=== PATIENT | female | born 1950 | race Caucasian/White ===

== ENCOUNTER → 2017-12-04 07:28 | Outpatient (CLI) | payer MEDICARE, SELFPAY ==
[2017-12-04 10:51] LABS: Vitamin D 25 Hydroxy (D3) 50.7 ng/mL (30.0-100.0)
[2017-12-04 13:59] LABS: Add Manual Diff / Slide Review NO; Eosinophils Percent Auto 2.9 % (2-4); Hematocrit 37.3 % (36-46); Hemoglobin 12.4 g/dL (12.0-16.0); Lymphocytes Percent Auto 30.1 % (25-40); Mean Corpuscular HGB Conc 33.4 % (30-36); Mean Corpuscular Hemoglobin 30.2 PG (26-34); Mean Corpuscular Volume 90.6 fL (80-100); Monocytes Percent Auto 6.4 % (3-14); Neutrophils Absolute Auto 3200 /uL (3000-5900); Neutrophils Percent Auto 59.6 % (50-75); Platelet Count 175 X10^3/uL (150-400); Red Blood Cell Count 4.12 X10^6/uL (4.0-5.2); Red Cell Distribution Width 14.7 % (11.6-14.8); White Blood Cell Count 5.4 X10^3/uL (4.5-11.0)
[2017-12-04 14:25] LABS: Alanine Aminotransferase 38 IU/L (9-52); Albumin Globulin Ratio 1.3 (1.0-2.8); Alkaline Phosphatase 38 U/L (38-126); Aspartate Aminotransferase 34 IU/L (14-36); Bilirubin Total 0.3 mg/dL (0.2-1.3); Blood Urea Nitrogen 17 mg/dL (7-17); Carbon Dioxide 29 mmol/L (22-32); Chloride 100 mmol/L (98-107); Cholesterol 232 mg/dL (140-199); Estimated Glomerular Filt Rate 55.5 mL/min (>60); Globulin 3.2 g/dL (1.7-4.1); Glucose 76 mg/dL (80-110); HDL Cholesterol 78 mg/dL (40-60); HEMOLYSIS < 15 (0-50); LDL Cholesterol Calculated 143 mg/dL (<100); Potassium 4.5 mmol/L (3.4-5.1); Sodium 136 mmol/L (137-145); Total Protein 7.2 g/dL (6.3-8.2); Triglycerides 53 mg/dL (35-150)
== END ==
PROVIDERS: PCP Internal Medicine; Visit Provider Internal Medicine
DX: M81.0 Age-related osteoporosis without current pathological fracture (principal); M19.90 Unspecified osteoarthritis, unspecified site; R00.2 Palpitations; Z82.49 Family history of ischemic heart disease and other diseases of the circulatory system; Z13.220 Encounter for screening for lipoid disorders; Z00.00 Encounter for general adult medical examination without abnormal findings
CPT/HCPCS: 36415; 80053; 80061; 82306; 84443; 85025

== ENCOUNTER → 2018-01-02 10:19 | Outpatient (CLI) | payer MEDICARE, SELFPAY ==
--- NOTE | 2018-01-02 | DI.MG.S_ITS ---
BILATERAL DIGITAL SCREENING MAMMOGRAM 3D/2D WITH CAD: 01/02/2018 CLINICAL: Routine screening. Family history of breast cancer. Comparison is made to exams dated: 01/01/2017 mammogram - [facility], 12/01/2015 mammogram, and 11/25/2014 mammogram - [facility]. The tissue of both breasts is heterogeneously dense. This may lower the sensitivity of mammography. Current study was also evaluated with a Computer Aided Detection (CAD) system. There is an unchanged calcified mass in the upper outer left breast, likely representing a calcified fibroadenoma or lymph node. No significant masses, calcifications, or other findings are seen in either breast. There has been no significant interval change. IMPRESSION: BENIGN There is no mammographic evidence of malignancy. A 1 year screening mammogram is recommended. This exam was interpreted at Station ID: [id number]. NOTE: For mammograms, a report in lay terms will be sent to the patient. Approximately 15% of breast malignancies will not be visualized mammographically. In the management of a palpable breast mass, a negative mammogram must not discourage biopsy of a clinically suspicious lesion. Electronically Signed By: Ken Nuñez M.D. ecl/:01/04/2018 01:59:38 letter sent: Normal Exam ACR BI-RADS Category 2: Benign Finding(s) 3342F
== END ==
PROVIDERS: PCP Internal Medicine; Visit Provider Obstetrics & Gynecology
DX: Z12.31 Encounter for screening mammogram for malignant neoplasm of breast (principal); Z80.3 Family history of malignant neoplasm of breast
CPT/HCPCS: 77063; 77067

== ENCOUNTER 2018-06-29 06:32 | Emergency (ER) | payer MEDICARE, SELFPAY ==
[2018-06-29 06:35] VITALS: BP 112/62; PULSE 68; RESP 18; TEMP 36.5; O2SAT 96; BMI 20.2
--- NOTE | 2018-06-29 07:02 | ED_ITS ---
HPI - Eye Problem General Chief complaint: Eye Problems Stated complaint: Thinks detached retina L eye Time Seen by Provider: 06/29/18 06:43 Source: patient Mode of arrival: ambulatory Limitations: no limitations History of Present Illness HPI Narrative: Patient is a 68-year-old female here for evaluation of floaters and flashes in her left eye. She states that last evening she was leaving a friend's house . she states that while she was driving home she noticed flashers in her left eye off into the peripheral vision. She had no other symptoms associated with symptoms. She states that it is occasional. She woke up this morning still seeing the floaters. Again she states they are occasional. She sees the most when she looks to the left. no prior eye surgeries. She does wear corrective lenses. She states she has the beginnings of cataracts but has not had any treatment for them. No history of glaucoma. Related Data Home Medications Medication Instructions Recorded Confirmed calcium carbonate-vitamin D3 0 PO SEE INSTRUCTIONS #0 12/06/16 12/11/17 [Calcium 600 with Vitamin D3] conjugated estrogens [Premarin] 0 VAGINAL SEE INSTRUCTIONS #0 12/06/16 12/11/17 ibuprofen 200 mg PO BID PRN #0 12/06/16 12/11/17 Previous Rx's Medication Instructions Recorded progesterone micronized 100 mg PO SEE INSTRUCTIONS #45 cap 12/06/16 estradiol 0.05 mg/24 hr semiweekly 1 patch TRANSDERMAL 2XW #24 patch 12/11/17 transdermal patch estriol 1mg vaginal perle See Rx Instructions .ROUTE 12/11/17 .COMPLEX #30 each ibandronate 150 mg tablet 150 mg PO QMONTH #3 tab 12/11/17 progesterone micronized 100 mg 100 mg PO HS #90 cap 12/11/17 capsule trazodone 100 mg tablet 100 mg PO HS #90 tab 12/11/17 Allergies Allergy/AdvReac Type Severity Reaction Status Date / Time Sulfa (Sulfonamide Allergy Severe LIP Unverified 12/11/17 13:43 Antibiotics) SWELLING [SULFA (SULFONAMIDE ANTIBIOTICS)] Review of Systems Constitutional Denies fever(s) and Denies headache(s) Eyes Denies blind spots, Denies blurry vision, Reports change in vision ( flashers left eye), Denies diplopia, Denies eye discharge, Reports dry eyes, Reports floaters ( Left eye), Denies loss of peripheral vision, Denies loss of vision, Denies eye pain, Reports requires corrective lenses, Reports seeing flashes and Denies photophobia ENT Ears, Nose, Mouth, and Throat: Denies facial pain, Denies headache(s), Denies mouth lesions, Denies sinus pressure and Denies sore throat Cardiovascular Denies chest pain and Denies palpitations Integumentary/Breasts Denies rash Neurologic Denies headache(s) and Denies loss of vision Endocrine Denies palpitations PFSH Medical History Anxiety (Chronic) Hearing deficit (Chronic) History of diverticulosis (Chronic) Myopia (Chronic) Osteoarthritis (Chronic ~2011) Osteoporosis (Chronic ~2013) PAC (premature atrial contraction) (Chronic) PVC (premature ventricular contraction) (Chronic) Surgical History Anesthesia (Resolved) Surgical procedure planned (Resolved ~1995) Surgical procedure planned (Resolved ~2013) Family History Brother Age: 68 Glioblastoma Hypertension Diabetes mellitus Father Hypertension High cholesterol Mental health problem Diabetes mellitus Mother Breast cancer Social History Smoking Status: Former smoker Family History Brother Age: 68 Glioblastoma Hypertension Diabetes mellitus Father Hypertension High cholesterol Mental health problem Diabetes mellitus Mother Breast cancer Social History Smoking Status: Former smoker Exam Initial Vital Signs Initial Vital Signs: Vital Signs Temperature 97.7 F 06/29/18 06:35 Pulse Rate 68 06/29/18 06:35 Respiratory Rate 18 06/29/18 06:35 Blood Pressure 112/62 06/29/18 06:35 Pulse Oximetry 96 06/29/18 06:35 Const General: cooperative, healthy appearing, comfortable, well developed, well groomed and No acute distress Orientation: alert, awake and oriented x3 HENGA Head: normal to inspection and normocephalic Ears: TM's normal bilaterally Eyes Eyelids: eyelids normal Conjunctivae: conjunctivae normal Sclera: sclerae normal Pupils: PERRL EOM: EOM intact bilaterally Direct ophthalmoscopy: normal light reflex Other: patient's left eye does have a dark spot in the 6 o'clock position. Patient states this is not new. Interocular pressure left eye 18. Interocular pressure right eye 20. Nondilated direct ophthalmoscope shows normal optic nerve. Resp Effort & Inspection: normal respiratory effort Skin Lesions: no lesions Rashes: no rashes Neuro General: alert, awake and oriented x3 Cranial Nerves: CN's II-XI intact bilaterally Cognition: normal cognition Speech: speech normal Motor: muscle tone normal throughout Sensory Exam: no sensory deficits noted Course Vital Signs - 8 hr 06/29/18 06:35 Temperature 97.7 F Pulse Rate 68 Respiratory Rate 18 Blood Pressure 112/62 Pulse Oximetry 96 MDM - Eye Problem MDM Narrative Medical decision making narrative: Patient has no decrease in vision in left eye. Visu acuity was noted. Her history physical exam consistent with a vitreous detachment. Low suspicion for retinal detachment. 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 She was given return precautions. She expressed understanding and agreement plan. Discharge Plan Departure Patient Disposition: Home Clinical Impression: Vision abnormalities Instructions: DI for Vitreous Detachment Activity Restrictions/Additional Instructions: contact Dr. Cleary office on Sunday morning for follow-up. Return to the emergency department for any new symptoms to include headaches, loss of vision, numbness or tingling or weakness or any other concerning symptoms. Prescriptions: No Action ibuprofen 200 MG capsule 200 mg PO BID PRNQty: 0 RF: 0 conjugated estrogens [Premarin] 0.625 MG/GM cream Vaginal SEE INSTRUCTIONS Qty: 0 RF: 0 calcium carbonate-vitamin D3 [Calcium 600 with Vitamin D3] 600 MG/200 IU capsule PO SEE INSTRUCTIONS Qty: 0 RF: 0 progesterone micronized 100 MG capsule 100 mg PO SEE INSTRUCTIONS Qty: 45 RF: 3 estriol 1mg vaginal perle tablet See Rx Instructions .ROUTE .COMPLEX Qty: 30 RF: 5 ibandronate 150 mg tablet 150 mg PO QMONTH Qty: 3 RF: 3 progesterone micronized [Prometrium] 100 mg capsule 100 mg PO HS Qty: 90 RF: 3 trazodone 100 mg tablet 100 mg PO HS Qty: 90 RF: 3 estradiol 0.05 mg/24 hr patch semiweekly 1 patch Transdermal 2XW Qty: 24 RF: 3 Referrals: Miranda Barkley ARNP [Primary Care Provider] -
[2018-06-29 07:23] VITALS: BP 111/71; PULSE 64; RESP 14; O2SAT 99
== END 2018-06-29 07:25 | disposition home or self-care (01) ==
PROVIDERS: Emergency Provider Emergency Medicine; PCP Internal Medicine
DX: H53.9 Unspecified visual disturbance (principal)
CPT/HCPCS: 99282

== ENCOUNTER → 2019-01-03 10:03 | Outpatient (CLI) | payer MEDICARE, SELFPAY ==
--- NOTE | 2019-01-03 | DI.MG.S_ITS ---
BILATERAL DIGITAL SCREENING MAMMOGRAM 3D/2D WITH CAD: 01/03/2019 CLINICAL: Routine screening. Family history of breast cancer. Comparison is made to exams dated: 01/02/2018 mammogram, 01/01/2017 mammogram - [facility], and 12/01/2015 mammogram - [facility]. The tissue of both breasts is heterogeneously dense. This may lower the sensitivity of mammography. Current study was also evaluated with a Computer Aided Detection (CAD) system. There is a benign mass in the left breast. No significant masses, calcifications, or other findings are seen in either breast. There has been no significant interval change. IMPRESSION: There is no mammographic evidence of malignancy. A 1 year screening mammogram is recommended. This exam was interpreted at Station ID: [id number]. NOTE: For mammograms, a report in lay terms will be sent to the patient. Approximately 15% of breast malignancies will not be visualized mammographically. In the management of a palpable breast mass, a negative mammogram must not discourage biopsy of a clinically suspicious lesion. Electronically Signed By: Anna jessica/adina:01/03/2019 14:04:19 letter sent: Normal Exam ACR BI-RADS Category 2: Benign Finding(s) 3342F
== END ==
PROVIDERS: PCP Internal Medicine; Visit Provider Internal Medicine
DX: Z12.31 Encounter for screening mammogram for malignant neoplasm of breast (principal); Z80.3 Family history of malignant neoplasm of breast; M85.852 Other specified disorders of bone density and structure, left thigh; Z78.0 Asymptomatic menopausal state; Z82.62 Family history of osteoporosis; Z87.891 Personal history of nicotine dependence
CPT/HCPCS: 77063; 77067; 77080

== ENCOUNTER 2019-05-22 07:15 | Day surgery (SDC) | payer MEDICARE, SELFPAY ==
[2019-05-22] MEDS: CATARACT EYE COMPOUND (10 DROPS/SYRINGE) 3 DROPS EYE-OP (08:04)
[2019-05-22] MEDS: PROPARACAINE 0.5% OPHTH SOL 2 DROPS EYE-OP (08:04)
[2019-05-22 08:06] VITALS: BP 96/62; PULSE 58; RESP 16; TEMP 36.8; O2SAT 100; BMI 19.0
--- NOTE | 2019-05-22 08:35 | PM.PREOP ---
Pre-operative Note Interval Note History & Physical reviewed/Exam performed by Physician: Yes Changes to H&P: No
[2019-05-22] MEDS: PHENYLEPHRINE/LIDOCAINE VIAL (OR) 0.2 ML EYE-OP (08:55)
[2019-05-22] MEDS: BALANCED SALT IRRIG SOLN NO.2 15 ML 5 ML IRR (08:56)
[2019-05-22] MEDS: TETRACAINE 0.5% OPHTH DROPS 4 ML 2 DROPS EYE-OP (08:56)
[2019-05-22] MEDS: CHONDROIDTIN/SOD HYALURONATE 1.05 ML SYRINGE INTRAOCULA (08:56)
[2019-05-22] MEDS: MOXIFLOXACIN INJ 5 MG/ML VIAL EYE-OP (08:56)
[2019-05-22] MEDS: BALANCED SALT IRRIG SOLN NO.2 500 ML, EPINEPHrine 1 MG IRR (08:57)
[2019-05-22] MEDS: LIDOCAINE 2% INJ SDV 2 ML INJ (08:57)
--- NOTE | 2019-05-22 09:14 | PM.OP.1 ---
Procedure & Clinicians Procedure: Cataract extraction with intraocular lens implant, right. Same procedure as scheduled: Yes Indications: Visually significant age related nuclear sclerosis Surgeon: Gui Tracy Click Yes if Unassisted: Yes Anesthesia Type: MAC +/- Operative Notes Procedure in detail: The patient was brought to the operating suite. The correct patient, surgical site and lens were confirmed. 0.5 % tetracaine drops were placed in the right eye. The patient was prepped and draped in the typical sterile manner. A lid speculum was placed in the eye. 2% lidocaine was placed on the eye. A paracentesis port was created with a side-port blade. 0.1 mL of 1% preservative free lidocaine with phenylephrine was injected into the anterior chamber. Viscoelastic was injected into the anterior chamber. A 2.6mm keratome was used to create a clear corneal temporal incision. Cystotome and Utrata forceps were used to create a continuous curvilinear capsulorrhexis. Balanced salt solution was used to hydrodissect the nucleus. Phacoemulsification was used to remove the lens. The capsular bag was inflated with viscoelastic. A Anaya ZCBOO +16.5D lens was inserted into the capsule. Viscoelastic was removed and the wound hydrated. The wound was found to be leak free and the eye was assessed to be at normal physiologic pressure. 0.1mL Vigamox was injected into the anterior chamber. The lid speculum was removed and the patient left the operating room in excellent condition. Complications: none Post-operative Condition: stable Disposition: same day surgery
[2019-05-22 09:16] VITALS: BP 98/67; PULSE 63; RESP 16; TEMP 36.4; O2SAT 100
== END 2019-05-22 09:30 | disposition home or self-care (01) ==
LOC: OR 07:20
PROVIDERS: PCP Internal Medicine; Visit Provider Ophthalmology
PROC: (CPT 66984; principal; 2019-05-22 08:30)
DX: H25.11 Age-related nuclear cataract, right eye (principal); H40.013 Open angle with borderline findings, low risk, bilateral
CPT/HCPCS: 66984; J0171; J2250

== ENCOUNTER 2019-06-05 07:22 | Day surgery (SDC) | payer MEDICARE, SELFPAY ==
[2019-06-05] MEDS: PROPARACAINE 0.5% OPHTH SOL 2 DROPS EYE-OP (08:13)
[2019-06-05 08:15] VITALS: BP 104/69; PULSE 55; RESP 16; TEMP 36.3; O2SAT 100
[2019-06-05] MEDS: CATARACT EYE COMPOUND (10 DROPS/SYRINGE) 3 DROPS EYE-OP (08:16)
[2019-06-05 08:17] VITALS: BMI 18.9
--- NOTE | 2019-06-05 08:30 | PM.PREOP ---
Pre-operative Note Interval Note History & Physical reviewed/Exam performed by Physician: Yes Changes to H&P: No
[2019-06-05] MEDS: TETRACAINE 0.5% OPHTH DROPS 4 ML 2 DROPS EYE-OP (09:33)
[2019-06-05] MEDS: CHONDROIDTIN/SOD HYALURONATE 1.05 ML SYRINGE INTRAOCULA (09:48)
[2019-06-05] MEDS: LIDOCAINE 2% INJ SDV 2 ML INJ (09:48)
[2019-06-05] MEDS: BALANCED SALT IRRIG SOLN NO.2 15 ML 5 ML IRR (09:48)
[2019-06-05] MEDS: PHENYLEPHRINE/LIDOCAINE VIAL (OR) 0.2 ML EYE-OP (09:49)
[2019-06-05] MEDS: MOXIFLOXACIN INJ 5 MG/ML VIAL EYE-OP (09:49)
[2019-06-05] MEDS: BALANCED SALT IRRIG SOLN NO.2 500 ML, EPINEPHrine 1 MG IRR (09:50)
--- NOTE | 2019-06-05 10:06 | PM.OP.1 ---
Procedure & Clinicians Procedure: Cataract extraction with intraocular lens implant, left. Same procedure as scheduled: Yes Indications: Visually significant age related nuclear sclerosis, left Surgeon: Gui Tracy Click Yes if Unassisted: Yes Anesthesia Type: MAC +/- Operative Notes Procedure in detail: The patient was brought to the operating suite. The correct patient, surgical site and lens were confirmed. 0.5 % tetracaine drops were placed in the left eye. The patient was prepped and draped in the typical sterile manner. A lid speculum was placed in the eye. 2% lidocaine was placed on the eye. A paracentesis port was created with a side-port blade. 0.1 mL of 1% preservative free lidocaine with phenylephrine was injected into the anterior chamber. Viscoelastic was injected into the anterior chamber. A 2.6mm keratome was used to create a clear corneal temporal incision. Cystotome and Utrata forceps were used to create a continuous curvilinear capsulorrhexis. Balanced salt solution was used to hydrodissect the nucleus. Phacoemulsification was used to remove the lens. The capsular bag was inflated with viscoelastic. A Anaya ZCBOO +16.5D lens was inserted into the capsule. Viscoelastic was removed and the wound hydrated. The wound was found to be leak free and the eye was assessed to be at normal physiologic pressure. 0.1mL Moxifloxacin (5mg/mL) preservative free was injected into the anterior chamber. The lid speculum was removed and the patient left the operating room in excellent condition. Complications: none Post-operative Condition: stable Disposition: same day surgery
[2019-06-05 10:13] VITALS: BP 101/74; PULSE 60; RESP 15; TEMP 36.4; O2SAT 99
== END 2019-06-05 10:28 | disposition home or self-care (01) ==
LOC: OR 07:28
PROVIDERS: PCP Internal Medicine; Referring Provider Ophthalmology; Visit Provider Ophthalmology
PROC: (CPT 66984; principal; 2019-06-05 09:00)
DX: H25.12 Age-related nuclear cataract, left eye (principal)
CPT/HCPCS: 66984; J0171; J2250

== ENCOUNTER → 2020-01-05 08:05 | Outpatient (CLI) | payer MEDICARE, SELFPAY ==
--- NOTE | 2020-01-05 08:23 | DI.MG.S_ITS ---
Patient Name: ANA KOLB date: 1950 Sex: F Attending Physician: Filippo Indications: Date: 01/05/2020 08:17 At the request of: NIKKI YAP Procedure: MM screening mammo BI BILATERAL DIGITAL SCREENING MAMMOGRAM 3D/2D WITH CAD: 01/05/2020 CLINICAL: Routine screening. Family history of breast cancer. Comparison is made to exams dated: 01/03/2019 mammogram, 01/02/2018 mammogram, and 01/01/2017 mammogram - [facility]. The tissue of both breasts is heterogeneously dense. This may lower the sensitivity of mammography. Current study was also evaluated with a Computer Aided Detection (CAD) system. There is a benign mass in the left breast. There also are benign calcifications in the left breast. No significant masses, calcifications, or other findings are seen in either breast. There has been no significant interval change. IMPRESSION: BENIGN There is no mammographic evidence of malignancy. A 1 year screening mammogram is recommended. This exam was interpreted at Station ID: [id number]. NOTE: For mammograms, a report in lay terms will be sent to the patient. Approximately 15% of breast malignancies will not be visualized mammographically. In the management of a palpable breast mass, a negative mammogram must not discourage biopsy of a clinically suspicious lesion. Electronically Signed By: Steve funez/adina:01/05/2020 09:09:11 letter sent: Normal Exam ACR BI-RADS Category 2: Benign Finding(s) 3342F
== END ==
PROVIDERS: PCP Internal Medicine; Referring Provider Internal Medicine; Visit Provider Internal Medicine
DX: Z12.31 Encounter for screening mammogram for malignant neoplasm of breast (principal); Z80.3 Family history of malignant neoplasm of breast
CPT/HCPCS: 77063; 77067

== ENCOUNTER → 2020-05-21 07:38 | Outpatient (CLI) | payer MEDICARE, SELFPAY ==
[2020-05-21] MEDS: COVID-19 VACC #1, MRNA(MOD) 100 MCG/0.5 ML VIAL IM (07:42)
== END ==
PROVIDERS: PCP Internal Medicine; Visit Provider Internal Medicine
DX: Z23 Encounter for immunization (principal)
CPT/HCPCS: 0011A; 91301

== ENCOUNTER → 2020-06-18 07:39 | Outpatient (CLI) | payer MEDICARE, SELFPAY ==
[2020-06-18] MEDS: COVID-19 VACC #2, MRNA(MOD) 100 MCG/0.5 ML VIAL IM (07:42)
== END ==
PROVIDERS: PCP Internal Medicine; Visit Provider Internal Medicine
DX: Z23 Encounter for immunization (principal)
CPT/HCPCS: 0012A; 91301

== ENCOUNTER → 2020-10-04 11:08 | Outpatient (CLI) | payer MEDICARE, SELFPAY ==
--- NOTE | 2020-10-04 | DI.US.S_ITS ---
PROCEDURE: US PELVIC COMPLETE INDICATIONS: ABNORMAL UTERINE AND VAGINAL BLEEDING TECHNIQUE: Real-time scanning was performed of the pelvic organs, with image documentation. Additional endovaginal scanning was necessary due to incomplete visualization of the adnexal and endometrial structures by transabdominal scanning. COMPARISON: None. FINDINGS: Uterus: The uterus measures 10.1 x 7.6 x 7.6 cm. Endometrial thickness is 2.2 mm. The uterus is heterogenous and enlarged. A medial and posterior intramural fibroid measures 6.9 x 6.9 x 6.1 cm. A left anterior intramural fibroid measures 0.9 x 1.2 x 0.7 cm. There is a nabothian cyst. Ovaries: The right ovary is not well seen. The left ovary has a normal size and appearance. Other: No adnexal fluid. IMPRESSION: 1. Fibroid uterus with the largest fibroid posteriorly measuring 6.9 x 6.9 x 6.1 cm. 2. No acute abnormality. Dictated by: Bossman Villanueva M.D. on 10/04/2020 at 15:27 Approved by: Bossman Villanueva M.D. on 10/04/2020 at 15:30
== END ==
PROVIDERS: PCP Internal Medicine; Referring Provider Internal Medicine; Visit Provider Internal Medicine
DX: N93.9 Abnormal uterine and vaginal bleeding, unspecified (principal); D25.1 Intramural leiomyoma of uterus; N88.8 Other specified noninflammatory disorders of cervix uteri
CPT/HCPCS: 76830; 76856

== ENCOUNTER → 2021-01-05 15:44 | Outpatient (CLI) | payer MEDICARE, SELFPAY ==
--- NOTE | 2021-01-05 | DI.MG.S_ITS ---
BILATERAL DIGITAL SCREENING MAMMOGRAM 3D/2D WITH CAD: 01/05/2021 CLINICAL: Routine screening. Family history of breast cancer. Comparison is made to exams dated: 01/05/2020 mammogram, 01/03/2019 mammogram, and 01/02/2018 mammogram - [facility]. The tissue of both breasts is heterogeneously dense. This may lower the sensitivity of mammography. Current study was also evaluated with a Computer Aided Detection (CAD) system. There is a benign mass in the left breast. There also are benign calcifications in the left breast. Additionally, there are benign post operative findings in the right breast. No significant masses, calcifications, or other findings are seen in either breast. There has been no significant interval change. IMPRESSION: BENIGN There is no mammographic evidence of malignancy. A 1 year screening mammogram is recommended. This exam was interpreted at Station ID: [id number]. NOTE: For mammograms, a report in lay terms will be sent to the patient. Approximately 15% of breast malignancies will not be visualized mammographically. In the management of a palpable breast mass, a negative mammogram must not discourage biopsy of a clinically suspicious lesion. Electronically Signed By: Bossman Villanueva acr/penrad:01/05/2021 18:39:28 letter sent: Normal Exam ACR BI-RADS Category 2: Benign Finding(s) 3342F
== END ==
PROVIDERS: PCP Internal Medicine; Referring Provider Internal Medicine; Visit Provider Internal Medicine
DX: Z12.31 Encounter for screening mammogram for malignant neoplasm of breast (principal); Z80.3 Family history of malignant neoplasm of breast
CPT/HCPCS: 77063; 77067

== ENCOUNTER → 2021-02-14 12:01 | Outpatient (CLI) | payer MEDICARE, SELFPAY | PROVIDERS: PCP Internal Medicine; Referring Provider Internal Medicine; Visit Provider Internal Medicine | DX: Z78.0 Asymptomatic menopausal state (principal); M85.852 Other specified disorders of bone density and structure, left thigh; Z87.891 Personal history of nicotine dependence | CPT/HCPCS: 77080 ==

== ENCOUNTER → 2022-01-31 10:01 | Outpatient (CLI) | payer MEDICARE, SELFPAY ==
--- NOTE | 2022-01-31 10:03 | DI.MG.S_ITS ---
BILATERAL DIGITAL SCREENING MAMMOGRAM 3D/2D WITH CAD: 01/31/2022 CLINICAL: Routine screening. Family history of breast cancer. Comparison is made to exams dated: 01/05/2021 mammogram, 01/05/2020 mammogram, 01/03/2019 mammogram - [facility], 06/27/2013 mammogram, and 11/25/2014 mammogram - [facility]. Both breasts are heterogeneously dense, which may obscure small masses (category c / 51-75% glandular tissue). Current study was also evaluated with a Computer Aided Detection (CAD) system. There is a benign mass in the left breast. There also are benign calcifications in the left breast. Additionally, there are benign post operative findings in the right breast. No significant masses, calcifications, or other findings are seen in either breast. There has been no significant interval change. IMPRESSION: BENIGN There is no mammographic evidence of malignancy. A 1 year screening mammogram is recommended. Based on Tyrer-Cuzick model (a risk assessment model), the patient's lifetime risk is 23.7% and her 10 year risk is 15.7%. If a patient has an elevated risk, a more comprehensive evaluation should be considered and/or a referral to a genetic counselor. The [place] [employer], [place] [employer], and NCCN Guidelines advise the consideration of Breast MRI as an adjunct to screening mammography in patients whose Lifetime risk to develop breast cancer is 20% or higher. This exam was interpreted at Station ID: [id number]. NOTE: For mammograms, a report in lay terms will be sent to the patient. Approximately 15% of breast malignancies will not be visualized mammographically. In the management of a palpable breast mass, a negative mammogram must not discourage biopsy of a clinically suspicious lesion. Electronically Signed By: Steve funez/adina:01/31/2022 11:30:37 letter sent: Normal Exam ACR BI-RADS Category 2: Benign Finding(s) 3342F
== END ==
PROVIDERS: PCP Internal Medicine; Referring Provider Internal Medicine; Visit Provider Internal Medicine
DX: Z12.31 Encounter for screening mammogram for malignant neoplasm of breast (principal); Z80.3 Family history of malignant neoplasm of breast
CPT/HCPCS: 77063; 77067

== ENCOUNTER → 2023-02-01 07:46 | Outpatient (CLI) | payer MEDICARE, SELFPAY ==
--- NOTE | 2023-02-01 | DI.MG.S_ITS ---
BILATERAL DIGITAL SCREENING MAMMOGRAM 3D/2D WITH CAD: 02/01/2023 CLINICAL: Routine screening. Family history of breast cancer. Comparison is made to exams dated: 01/31/2022 mammogram, 01/05/2021 mammogram, and 01/05/2020 mammogram - [facility]. Both breasts are heterogeneously dense, which may obscure small masses (category c / 51-75% glandular tissue). Current study was also evaluated with a Computer Aided Detection (CAD) system. There is a benign mass in the left breast. There also are benign calcifications in the left breast. Additionally, there are benign post operative findings in the right breast. No significant masses, calcifications, or other findings are seen in either breast. There has been no significant interval change. IMPRESSION: BENIGN There is no mammographic evidence of malignancy. A 1 year screening mammogram is recommended. Based on Tyrer-Cuzick model (a risk assessment model), the patient's lifetime risk is 22.0% and her 10 year risk is 15.5%. If a patient has an elevated risk, a more comprehensive evaluation should be considered and/or a referral to a genetic counselor. The [place] [employer], [employer], and NCCN Guidelines advise the consideration of Breast MRI as an adjunct to screening mammography in patients whose Lifetime risk to develop breast cancer is 20% or higher. This exam was interpreted at Station ID: [id number]. NOTE: For mammograms, a report in lay terms will be sent to the patient. Approximately 15% of breast malignancies will not be visualized mammographically. In the management of a palpable breast mass, a negative mammogram must not discourage biopsy of a clinically suspicious lesion. Electronically Signed By: Bossman ng/penrad:02/01/2023 11:58:44 letter sent: Normal Exam ACR BI-RADS Category 2: Benign Finding(s) 3342F
== END ==
PROVIDERS: PCP Internal Medicine; Referring Provider Internal Medicine; Visit Provider Internal Medicine
DX: Z12.31 Encounter for screening mammogram for malignant neoplasm of breast (principal); Z80.3 Family history of malignant neoplasm of breast
CPT/HCPCS: 77063; 77067

== ENCOUNTER → 2023-02-26 11:12 | Outpatient (CLI) | payer MEDICARE, SELFPAY ==
--- NOTE | 2023-02-26 | DI.RAD.S_ITS ---
Bone Density Report Name: ANA KOLB Age: 73 Sex: Female Ethnicity: White Date of : 1950 Indication: osteopenia; Referring Provider: NIKKI YAP Study: Bone densitometry was performed. Exam Date: February 26, 2023 Accession number: [id number] Bone Density: Region BMD T-score Z-score Classification AP Spine(L1-L4) 0.779 -2.4 -0.2 Osteopenia Femoral Neck (Left) 0.553 -2.7 -0.8 Osteoporosis Total Hip (Left) 0.625 -2.6 -1.0 Osteoporosis Femoral Neck (Right) 0.576 -2.5 -0.6 Osteoporosis Total Hip (Right) 0.620 -2.6 -1.0 Osteoporosis Total Hip Mean 0.623 -2.6 -1.0 Osteoporosis World Health Organization criteria for BMD impression classify patients as: Normal (T-score at or above -1.0), Osteopenia (T-score between -1.0 and -2.5), or Osteoporosis (T-score at or below -2.5). 10-year Fracture Risk: FRAX not reported because: Some T-score for Spine Total or Hip Total or Femoral Neck at or below -2.5 Previous Exams: -- Region Exam Age BMD T-score BMD Change BMD Change Date g/cm2 vs Baseline vs Previous -- AP Spine (L1-L4) 02/26/2023 73 0.779 -2.4 -0.138 (-15.0%)# -0.101 (-11.5%)# 02/14/2021 70 0.880 -1.5 -0.037 (-4.0%)* -0.026 (-2.9%)* 01/03/2019 68 0.907 -1.3 -0.010 (-1.1%) -0.010 (-1.1%) 01/01/2017 66 0.917 -1.2 Total Hip(Left) 02/26/2023 73 0.625 -2.6 -0.055 (-8.0%)# -0.076 (-10.9%)# 02/14/2021 70 0.701 -2.0 0.021 (3.2%) -0.007 (-1.0%) 01/03/2019 68 0.708 -1.9 0.028 (4.2%)* 0.028 (4.2%)* 01/01/2017 66 0.680 -2.1 Total Hip(Right) 02/26/2023 73 0.620 -2.6 -0.051 (-7.6%)# -0.067 (-9.8%)# 02/14/2021 70 0.687 -2.1 0.016 (2.4%) -0.021 (-3.0%) 01/03/2019 68 0.709 -1.9 0.037 (5.6%)* 0.037 (5.6%)* 01/01/2017 66 0.671 -2.2 -- *Denotes significance at 95% confidence level, LSC for AP Spine = 0.022 g/cm2, LSC for Total Hip = 0.027 g/cm2 # Denotes dissimilar scan types or analysis methods Impression: The patient has osteoporosis, based on the Left Femoral Neck T-score. No significant bone loss was observed. Discussion: INCREASED RISK OF FRACTURE. BONE DENSITY IS UNDESIRABLY LOW AT ONE OR MORE SKELETAL SITES, CONSISTENT WITH POSTMENOPAUSAL OSTEOPOROSIS. This patient's lowest T-score meets the World Health Organization's (WHO) criteria for osteoporosis at one or more sites (T-score -2.5 or below). In untreated patients, the risk of osteoporotic fracture increases approximately two-fold for each 1.0 SD decrease in T-score. Low bone density is not the only risk factor for fracture; also consider factors such as patient's age, frailty or poor health, risk of falling, risk of injury, previous osteoporotic fracture, family history of osteoporosis, cigarette smoking, low body weight, etc. Not everyone with low bone mineral density has osteoporosis; osteomalacia and other metabolic bone disorders should also be considered. Patients who have osteoporosis should be evaluated for specific diseases and conditions (secondary causes) that may cause or contribute to bone loss. The [place] Association [employer] Clinical Endocrinologists (AACE) and National Osteoporosis Foundation (NOF) recommend pharmacologic intervention for all postmenopausal women whose T-score is in this range. The patient should follow a healthful lifestyle (good nutrition with adequate calcium and vitamin D, and appropriate weight-bearing exercise). Follow-Up: Consider a repeat BMD and Vertebral Fracture Assessment (VFA) exam in 2 years or sooner if medically necessary, to reassess this patient's status. Reported by: DOUG KAUFFMAN M.D. on 02/26/2023 11:34:00 AM.
== END ==
PROVIDERS: PCP Internal Medicine; Referring Provider Internal Medicine; Visit Provider Internal Medicine
DX: Z78.0 Asymptomatic menopausal state (principal); M81.0 Age-related osteoporosis without current pathological fracture
CPT/HCPCS: 77080

== ENCOUNTER → 2024-02-07 07:41 | Outpatient (CLI) | payer MEDICARE, SELFPAY ==
--- NOTE | 2024-02-07 | DI.MG.S_ITS ---
BILATERAL DIGITAL SCREENING MAMMOGRAM 3D/2D WITH CAD: 02/07/2024 CLINICAL: Routine screening. Family history of breast cancer. Comparison is made to exams dated: 02/01/2023 mammogram, 01/31/2022 mammogram, and 01/05/2021 mammogram - [facility]. The breasts are heterogeneously dense, which may obscure small masses (category c / 51-75% glandular tissue). Current study was also evaluated with a Computer Aided Detection (CAD) system. There is a benign mass in the left breast. There also are benign calcifications in the left breast. Additionally, there are benign post operative findings in the right breast. No significant masses, calcifications, or other findings are seen in either breast. There has been no significant interval change. IMPRESSION: BENIGN There is no mammographic evidence of malignancy. A 1 year screening mammogram is recommended. Based on Tyrer-Cuzick model (a risk assessment model), the patient's lifetime risk is 20.9% and her 10 year risk is 15.9%. If a patient has an elevated risk, a more comprehensive evaluation should be considered and/or a referral to a genetic counselor. The [employer], [employer], and NCCN Guidelines advise the consideration of Breast MRI as an adjunct to screening mammography in patients whose Lifetime risk to develop breast cancer is 20% or higher. This exam was interpreted at Station ID: [id number]. NOTE: For mammograms, a report in lay terms will be sent to the patient. Approximately 15% of breast malignancies will not be visualized mammographically. In the management of a palpable breast mass, a negative mammogram must not discourage biopsy of a clinically suspicious lesion. Electronically Signed By: Steve funez/adina:02/08/2024 20:34:19 letter sent: Normal Exam ACR BI-RADS Category 2: Benign
== END ==
PROVIDERS: PCP Internal Medicine; Referring Provider Internal Medicine; Visit Provider Internal Medicine
DX: Z12.31 Encounter for screening mammogram for malignant neoplasm of breast (principal); Z80.3 Family history of malignant neoplasm of breast; R92.333 Mammographic heterogeneous density, bilateral breasts
CPT/HCPCS: 77063; 77067

== ENCOUNTER → 2024-07-29 11:47 | Outpatient (CLI) | payer MEDICARE, SELFPAY ==
--- NOTE | 2024-07-29 11:49 | DI.MRI.S_ITS ---
MR breast BI wo/w con: 07/29/2024. BI-RADS: 1 CLINICAL: 74-year old female for bilateral diagnostic breast MRI. High-Risk Screening MRI. Current reported family history of breast cancer: mother, sister and maternal aunt. PRIOR EXAMS 02/07/2024, 02/01/2023, 01/31/2022, 01/05/2021, 01/05/2020, 01/03/2019, 01/02/2018, 01/01/2017. MRI TECHNIQUE Bilateral breast MRI was performed on a 1.5 [place] magnet using a dedicated breast coil with mild compression. Axial T1 and T2 STIR sequences were obtained. Dynamic contrast enhanced VIBRANT fat-suppressed sequences were obtained. Delayed sagittal high resolution or sagittal reconstructed isotropic sequence was also obtained. Subtraction images and maximum intensity projection images were obtained. The study was evaluated using Shot Stats software. IV Contrast: 20 ml ProHance. FIBROGLANDULAR TISSUE Bilateral: C. Heterogeneous fibroglandular tissue. BACKGROUND PARENCHYMAL ENHANCEMENT Bilateral: Mild symmetrical background parenchymal enhancement. BREAST FINDINGS Bilateral: Benign-appearing duct ectasia noted. There is no suspicious mass or non-mass enhancement. There are no abnormal axillary or internal mammary lymph nodes. IMPRESSION: * No evidence of malignancy. RECOMMENDATIONS Bilateral * If the patient has an elevated lifetime risk for breast cancer of over 20%, recommend consideration for annual screening breast MRI as an adjunct to screening mammography. This is to be offset by approximately 6 months from patient's mammogram. * Annual screening mammography. COMMENTS: The imaging literature indicates that a negative contrast breast MRI examination has a high sensitivity and a moderate specificity for detecting and excluding invasive carcinomas to a detection threshold of 3-5 mm; nonetheless, appropriate clinical and mammographic follow-up are recommended. MRI is not sensitive for detecting DCIS (ductal carcinoma in situ) and may not detect large invasive neoplasms that show only minimal enhancement such as mucinous carcinoma. If there are suspicious calcifications or clinically worrisome palpable masses, then biopsy should still be considered. Invasive neoplasms can be hidden by co-existent and benign enhancement caused by mastitis, hormone therapy effects, radiation therapy, , and recent biopsy or surgery. False positive examinations can occur in a number of circumstances, including breasts that have recently been subject to invasive procedures and those that contain atypical ductal hyperplasia, hormonally stimulated glandular tissue, fat necrosis, or radial scars. OVERALL ASSESSMENT CATEGORY BI-RADS-1: Negative. ELECTRONICALLY SIGNED: Danisha Spencer M.D. on 07/29/2024 at 01:37:56 PM PT Interpreting Station ID: [id number]
== END ==
PROVIDERS: PCP Family Medicine; Referring Provider Family Medicine; Visit Provider Family Medicine
DX: Z80.3 Family history of malignant neoplasm of breast (principal); Z12.39 Encounter for other screening for malignant neoplasm of breast; N60.42 Mammary duct ectasia of left breast; N60.41 Mammary duct ectasia of right breast; R92.333 Mammographic heterogeneous density, bilateral breasts
CPT/HCPCS: 77049; A9579

== ENCOUNTER → 2025-02-13 07:55 | Outpatient (CLI) | payer MEDICARE, SELFPAY ==
--- NOTE | 2025-02-13 07:57 | DI.MG.S_ITS ---
MM screening mammo BI: 02/13/2025. BI-RADS: 1 CLINICAL: 74-year old female for bilateral screening mammogram. Tyrer-Cuzick lifetime risk of 10.2%. Current reported family history of breast cancer: mother, sister and maternal aunt. The patient had a prior right breast biopsy. PRIOR EXAMS 07/29/2024, 02/07/2024, 02/01/2023, 01/31/2022. MAMMOGRAPHY TECHNIQUE: 2D and 3D (tomosynthesis) digital mammographic views obtained, with additional images as needed for full coverage. Current study was also evaluated with a Computer Aided Detection (CAD) system. DENSITY C. The breasts are heterogeneously dense, which may obscure small masses. MAMMOGRAPHY FINDINGS Bilateral: No suspicious mass, asymmetry, microcalcification, or other abnormality seen. IMPRESSION: * No evidence of malignancy. RECOMMENDATIONS Bilateral * Annual screening mammography. OVERALL ASSESSMENT CATEGORY BI-RADS-1: Negative. The [employer] recommends annual screening mammography beginning at age 40 for women with average risk of breast cancer. ELECTRONICALLY SIGNED: Danisha Spencer M.D. on 02/13/2025 at 05:15:26 PM PT Interpreting Station ID: [id number]
== END ==
LOC: MAMMO 07:56
PROVIDERS: PCP Family Medicine; Referring Provider Family Medicine; Visit Provider Family Medicine
DX: Z12.31 Encounter for screening mammogram for malignant neoplasm of breast (principal); R92.333 Mammographic heterogeneous density, bilateral breasts; Z80.3 Family history of malignant neoplasm of breast
CPT/HCPCS: 77063; 77067

== ENCOUNTER → 2025-04-06 07:12 | Outpatient (CLI) | payer MEDICARE, SELFPAY ==
[2025-04-06 07:42] LABS: Hemoglobin A1C% w Est Avg Glu 5.1 % (4.0-6.0)
[2025-04-06 07:48] LABS: Alanine Aminotransferase 22 IU/L (<35); Albumin 3.9 g/dL (3.5-5.0); Albumin Globulin Ratio 1.3 (1.0-2.8); Alkaline Phosphatase 53 U/L (38-126); Blood Urea Nitrogen 20 mg/dL (7-17); Calcium 9.2 mg/dL (8.4-10.2); Carbon Dioxide 26 mmol/L (22-32); Chloride 104 mmol/L (98-107); Cholesterol 207 mg/dL (140-199); Estimated Glomerular Filt Rate > 60 mL/min (>60); Globulin 2.9 g/dL (1.7-4.1); Glucose 99 mg/dL (70-99); HDL Cholesterol 102 mg/dL (40-60); HEMOLYSIS < 15 (0-50); Potassium 4.5 mmol/L (3.4-5.1); Sodium 136 mmol/L (137-145); Total Protein 6.8 g/dL (6.3-8.2); Triglycerides 43 mg/dL (35-150)
== END ==
PROVIDERS: PCP Family Medicine; Referring Provider Family Medicine; Visit Provider Family Medicine
DX: Z13.1 Encounter for screening for diabetes mellitus (principal); Z13.220 Encounter for screening for lipoid disorders; M81.0 Age-related osteoporosis without current pathological fracture
CPT/HCPCS: 36415; 80053; 80061; 83036

== ENCOUNTER → 2025-04-14 15:27 | Outpatient (CLI) | payer MEDICARE, SELFPAY ==
[2025-04-14 16:48] LABS: Add Manual Diff / Slide Review NO; Hematocrit 35.1 % (36-46); Hemoglobin 11.9 g/dL (12.0-16.0); Lymphocytes Absolute Auto 1800 /uL (1100-4500); Mean Corpuscular HGB Conc 33.8 % (30-36); Mean Corpuscular Hemoglobin 30.1 PG (26-34); Mean Corpuscular Volume 89.0 fL (80-100); Platelet Count 200 X10^3/uL (150-400)
[2025-04-14 17:05] LABS: HEMOLYSIS < 15 (0-50); Iron 197 ug/dL (37-170)
[2025-04-14 17:14] LABS: Percent Iron Saturation 62 % (15-50); Total Iron Binding Capacity 317 ug/dL (265-497); Transferrin 282 mg/dL (206-381)
[2025-04-14 17:39] LABS: TSH w/ Reflex to FT4 3.19 uIU/mL (0.47-4.68)
[2025-04-14 17:45] LABS: Ferritin 26 ng/mL (11-264)
[2025-04-14 17:59] LABS: Vitamin B12 Reflex MMA if <400 894 pg/mL (239-931)
[2025-04-14 18:15] LABS: Folate > 20.0 ng/mL (2.76-20.0)
== END ==
PROVIDERS: PCP Family Medicine; Referring Provider Family Medicine; Visit Provider Family Medicine
DX: R47.89 Other speech disturbances (principal)
CPT/HCPCS: 36415; 82607; 82728; 82746; 83540; 83550; 84443; 85025